=== PATIENT | female | born 1975 | race Caucasian/White ===

== ENCOUNTER 2017-07-17 06:46 | Emergency (ER) | payer MEDICARE | END 2017-07-17 07:45 | disposition home or self-care (01) | LOC: EDBD 06:46 → ER1 06:46 | DX: Z76.0 Encounter for issue of repeat prescription (principal); F31.9 Bipolar disorder, unspecified; F17.210 Nicotine dependence, cigarettes, uncomplicated; Z79.899 Other long term (current) drug therapy | CPT/HCPCS: 99281 ==